=== PATIENT | male | born 1945 | race African-American/Black ===

== ENCOUNTER 2024-06-08 16:20 | Emergency (ER) | payer OTHER, MEDICARE, SELFPAY ==
[2024-06-08 16:30] VITALS: BP 145/79
[2024-06-08 16:33] LABS: Glucose - Point of Care 111 mg/dl (70-99)
[2024-06-08 17:00] VITALS: BP 142/77
[2024-06-08 17:58] LABS: % Basophils 1.5 % (0-2); % Eosinophils 3.9 % (0-6); % Immature Granulocytes 0.1 % (0-0.5); % Lymphocytes 23.8 % (20.5-51.1); % Monocytes 12.9 % (1.7-9.3); % Neutrophils 57.8 % (42.2-75.2); Absolute Basophils 0.1 10^3/uL (0-0.2); Absolute Eosinophils 0.3 10^3/uL (0-0.7); Absolute Lymphocytes 1.6 10^3/uL (1.2-3.4); Absolute Monocytes 0.9 10^3/uL (0.1-0.6); Absolute Neutrophils 3.9 10^3/uL (1.4-6.5); Hematocrit 47.8 % (39.0-52.0); Mean Corp Hgb Conc. 33.5 g/dL (33.0-37.0); Mean Corpuscular Hgb 28.7 pg (27.0-31.0); Mean Corpuscular Volume 85.8 fL (80.0-94.0); Mean Platelet Volume 10.8 fL (7.4-10.4); Nucleated Red Blood Cells % 0 % (-); Platelet Count 310 10^3/uL (130-400); Red Blood Cell Count 5.57 10^6/uL (4.70-6.10); White Blood Cell Count 6.7 10^3/uL (4.8-10.8)
[2024-06-08 19:48] LABS: ALT (SGPT) 17 U/L (0-50); AST (SGOT) 26 U/L (17-59); Albumin 3.9 g/dl (3.5-5.0); Alkaline Phosphatase 76 U/L (38-126); Blood Urea Nitrogen 14 mg/dl (9-20); Calcium 9.6 mg/dl (8.4-10.2); Carbon Dioxide 27 mmol/L (22-30); Chloride 102 mmol/L (98-107); Glucose 117 mg/dl (70-99); Potassium 4.9 mmol/L (3.5-5.1); Sodium 139 mmol/L (135-145); Total Bilirubin 0.4 mg/dl (0.2-1.3); Total Protein 7.4 g/dl (6.3-8.2); eGFR 55.88
[2024-06-08 20:01] LABS: Troponin I 0.022 ng/ml
[2024-06-08 20:18] LABS: Urine Albumin 2+ (Neg - Trace); Urine Bilirubin Negative (Negative); Urine Character Clear (Clear); Urine Color Yellow; Urine Glucose Negative (Negative); Urine Ketone Negative (Negative); Urine Leukocyte Negative (Negative); Urine Nitrite Negative (Negative); Urine Occult Blood 1+ (Negative); Urine Specific Gravity 1.015 (<1.030); Urine Urobilinogen 1+ (Neg - 1+)
[2024-06-08 20:30] LABS: Urine Squamous Cell 0-2 /LPF (Few); Urine White Cell 0-2 /HPF (0-5)
[2024-06-08 20:31] LABS: Urine Bacteria Few (Negative); Urine Hyaline Cast 0-2 /LPF (0-2); Urine Mucus Few
--- NOTE | 2024-06-08 21:21 | ED.CVA ---
History of Present Illness
General
Chief Complaint: CVA/TIA Symptoms
Source: family
Exam Limitations: none
Time Seen by Provider: 06/08/24 17:23
Onset of Stroke Symptoms
Onset of symptoms known: No
Time pt last seen normal is known: No
History of Present Illness
History of Present Illness:
Patient not presenting with strokelike symptoms. He is presenting with apparent pain pointing to his left chest and is seem to have some spasm of his extremities. Son says that this happens at times. They were unsure what to make of this. He now
seems comfortable and at baseline. Symptoms lasted about 10 minutes. No new strokelike symptoms per the family.
Past History
Past History
ED Past Medical History: Cancer, HTN, Hypercholesterolemia and Other (CVA/dementia)
ED Past Surgical History: Other (Hernia repair)
Social History
Tobacco: Non-smoker
Living: with family
Employment: Retired
Review of Systems
Review of Systems
All Other Systems: Not applicable
Phy Exam
Physical Exam
Physical Exam:
GENERAL: Alert. Moderate aphasia. Will follow simple commands
EYE: Orbits normal.
NECK: Supple, no significant adenopathy.
ENT: Pharynx without erythema
CARDIAC: Regular rate and rhythm without any obvious murmurs.
LUNGS: Clear breath sounds,normal
ABDOMEN: Soft, without focal tenderness or distention
NEUROLOGICAL: Alert moderate aphasia. Will follow simple commands. Dense hemiplegia.
SKIN: Warm and dry, no rash or lesion, no discoloration, skin intact.
MUSCULOSKELETAL: Contractures to the right side
PSYCH: Cooperative
Course
Orders/Labs/Results
Orders:
Orders
06/08/24 16:29
EKG [Electrocardiogram (*1)] Urgent
Reason for Study: Fatigue / Weakness
06/08/24 16:30
EKG- Treatment ONCE
06/08/24 17:29
CT Head W/o Iv Contrast Urgent
Comment:
Reason For Exam: History of CVA. Change in mental status
Cardiac Monitoring- Treatment ONCE
IV Insert/Care/Rem.- Treatment PRN
Straight cath- Treatment ONCE
CR Chest - 2 Views Urgent
Comment:
Reason For Exam: cp
Pulse Ox/cont/shift [RESP] Stat
Quantity: 1
06/08/24 17:48
CBC/With Diff [Complete Blood Count/With Diff] Urgent
06/08/24 19:28
Comprehensive Metabolic Panel Urgent
Troponin I Urgent
06/08/24 20:13
Urinalysis Reflex To Culture Urgent
Date Specimen was Collected: 06/08/24
Time Specimen was Collected: 20:11
Urine Microscopic Reflex Cult Urgent
Abnormal Lab Results
06/08/24 06/08/24 06/08/24
16:32 17:48 19:28
MPV 10.8 H fL
(7.4-10.4)
Absolute Monos (auto) 0.9 H 10^3/uL
(0.1-0.6)
Monocytes % 12.9 H %
(1.7-9.3)
Glucose 117 H mg/dl
(70-99)
Ur Occult Blood Reflex
Urine RBC
Urine Bacteria (Reflex)
Urine Albumin (Reflex)
POC Glucose 111 H mg/dl
(70-99)
06/08/24
20:13
MPV
Absolute Monos (auto)
Monocytes %
Glucose
Ur Occult Blood Reflex 1+ A
(Negative)
Urine RBC 3-6 A /HPF
(0-2)
Urine Bacteria (Reflex) Few A
(Negative)
Urine Albumin (Reflex) 2+ A
(Neg - Trace)
POC Glucose
06/08/24 17:48
06/08/24 19:28
Vital Signs
Initial and Last Documented VS:
Initial Vital Signs
Temp Pulse Resp BP
96.6 F L 59 24 145/79
06/08/24 16:30 06/08/24 16:30 06/08/24 16:30 06/08/24 16:30
Last Documented Vital Signs
Temp Pulse Resp BP Pulse Ox
96.6 F L 59 24 145/79 97
06/08/24 16:30 06/08/24 16:30 06/08/24 16:30 06/08/24 16:30 06/08/24 16:40
MDM/Problems Addressed
Differential Diagnosis Includes:
Family is describing more peripheral extremity like spasms and any other symptoms. He has had this occasionally. Not describing acute neurologic symptoms. Difficult to tell with the aphasia but low suspicion for cardiac. He has remained stable
throughout his ER stay. He is asymptomatic and at baseline workup is unremarkable. Patient can be discharged to follow-up
*Radiology
Radiology exam reviewed: preliminary read by ED provider (Negative chest x-ray) and radiology read reviewed (No acute findings on CT)
*Pulse Oximetry
Patient hypoxic: no
*EKG
Interpreted by ED Provider?: Yes
Interpretation: abnormal
Comparison EKG: no comparison EKG present
Heart Rate: 58
Rate: bradycardiac
Rhythm: sinus
[place]: normal axis
Interval: normal interval
QRS Pattern: right bundle branch block
Ischemia: non-specific ST changes
*Critical Care Note
Total Time (30-74mins, 75-104mins- exclusive of procedures): Not Applicable
ED Attending Note
-
Portions of this chart may have been created with voice recognition software.� Occasional wrong word or��sound alike� substitutions may have occurred due to the inherent limitations of voice recognition software.
Discharge Plan
Departure
Patient Disposition: Home (Routine Discharge)
Date of Disposition: 06/08/24
Time of Disposition: 21:25
Patient with high blood pressure during this ER visit?: Yes
Discharge Problem:
Transient nonspecified chest/extremity s, Spasm, History of CVA
Instructions: BLOOD PRESSURE
Referrals:
Emily Pierce DO [Family Provider] - Follow up in 2-3 days
Activity Restrictions/Additional Instructions:
Follow-up closely with his primary physician.
Return sooner with any recurrence of unusual pain mental status changes new neurologic symptoms or any other concerning symptoms
Interventions
Interventions:
*Risk Screen - Suicide Last Done: 06/08/24 16:30
*General Assessment Last Done: 06/08/24 16:30
*Neglect/Abuse Screening Last Done: 06/08/24 16:30
Discharge Date and Time
Print Language: TAIWANESE
== END 2024-06-08 22:04 | disposition home or self-care (01) ==
LOC: EMR 16:20
PROVIDERS: EMERGENCY PHYSICIAN Emergency Medicine; FAMILY PHYSICIAN Family Medicine
DX: R07.89 Other chest pain (principal); I10 Essential (primary) hypertension; E78.00 Pure hypercholesterolemia, unspecified; F03.90 Unspecified dementia, unspecified severity, without behavioral disturbance, psychotic disturbance, mood disturbance, and anxiety; Z86.73 Personal history of transient ischemic attack (TIA), and cerebral infarction without residual deficits
CPT/HCPCS: 99284; 70450; 71046; 80053; 81003; 81015; 82962; 84484; 85025; 93005

== ENCOUNTER 2025-04-29 13:06 | Emergency (ER) | payer MEDICARE, OTHER, SELFPAY ==
[2025-04-29 13:09] VITALS: BP 127/59; BMI 27.7
[2025-04-29 13:11] VITALS: BP 127/59
--- NOTE | 2025-04-29 13:30 | ED.CVA ---
History of Present Illness
General
Chief Complaint: CVA/TIA Symptoms
Source: patient and spouse
Exam Limitations: dementia
Time Seen by Provider: 04/29/25 13:21
Nursing documentation reviewed up to this point in time: agreed with
Onset of Stroke Symptoms
Onset of symptoms known: No
Time pt last seen normal is known: No
History of Present Illness
History of Present Illness:
Note:
CHIEF COMPLAINT(S)
Altered mental status.
HISTORY OF PRESENT ILLNESS
The patient is an 79-year-old male who experienced an episode of altered mental status today. According to his spouse, the patient had breakfast as usual but by approximately 12:00 PM, he was found unresponsive with eyes closed in bed. Family
members attempted to communicate with him, but he did not respond. The patients son called for emergency medical services (EMS) upon finding him unresponsive. Upon EMS arrival, he managed to say something but remained generally non-communicative.
His speech was noted to be unclear and difficult to understand, which, according to the spouse, is typical for him. The patient was able to follow some simple commands like lifting his hand and leg when prompted, although not consistently.
PHYSICAL EXAM
General: Alert, no acute distress noted upon current examination.
Skin: Warm, dry.
Head: Normocephalic, atraumatic.
Neck: Supple, trachea midline.
Eye Ears, nose, mouth and throat: Oral mucosa moist.
Cardiovascular: Normal peripheral perfusion, No edema.
Respiratory: Respirations are non-labored.
Gastrointestinal: Abdomen nondistended
Back: Normal range of motion, Normal alignment.
Musculoskeletal: Normal range of motion, normal strength when prompted though initially inconsistent.
Neurological: Alert but speech unclear. Complies with some commands but delayed responsiveness noted. Chronic right sided paralysis.
Psychiatric: Cooperative, appropriate mood & affect.
PLAN
1. Perform a head CT scan to evaluate for any acute intracranial events.
2. Conduct blood tests to identify any metabolic disturbances.
3. Monitor neurological status frequently.
4. Reassess for potential discharge home if clinical evaluation and testing are normal.
DIFFERENTIAL DIAGNOSIS
The Differential Diagnosis includes, in no particular order and is not limited to:
1. Transient ischemic attack
2. Cerebrovascular accident (stroke)
3. Hypoglycemia
4. Electrolyte imbalance
5. Seizure
6. Delirium
7. Medication effect or toxicity
8. Dehydration
9. Infection (e.g., urinary tract infection, pneumonia)
10. Dementia exacerbation
Disposition:
SUMMARY OF ENCOUNTER
The patient, an 79-year-old male, visited the emergency department due to an episode of altered mental status. He was found unresponsive at home around noon, prompting emergency services to be called. Upon arrival of EMS, the patient showed minimal
responsiveness with unclear speech. In the emergency department, the patient was evaluated, including a head CT scan, to rule out acute intracranial events, and various blood tests were conducted. The head CT scan and lab tests showed no acute
findings. The patient returned to his baseline state with no observed neurological deficits during further evaluations.
DISPOSITION
The patient is deemed stable for discharge and can safely return home with plans for close follow-up with his primary care provider.
ASSESSMENT
The patient�s episode is likely attributed to syncope or a transient ischemic attack (TIA), but with the absence of neurological deficits and acute findings, a cerebrovascular accident (CVA) is less likely.
PLAN
1. Discharge the patient with instructions to follow up with his primary care physician.
2. Ensure the patient�s is comfortable with his care at home and understand when to seek further medical attention if symptoms recur.
INDEPENDENT REVIEW OF LABS AND INTERPRETATION OF TESTS
My independent CT head interpretation reveals no acute intracranial events. My independent review of lab tests indicates no acute metabolic disturbances or electrolyte imbalances.
PATIENT EDUCATION AND COUNSELING
The patients was informed regarding the potential causes of his current episode, advised on possible warning signs to watch for, and when to return for medical evaluation.
FOLLOW-UP INSTRUCTIONS
The patient should follow up with his primary care physician soon for further evaluation and management of any underlying conditions that might have contributed to his current episode.
MEDICAL DECISION MAKING
-Complexity of Data Reviewed: Chronic conditions affecting care include consideration of transient ischemic attack, cerebrovascular accident (stroke), hypoglycemia, electrolyte imbalance, seizure, and delirium as possible diagnoses.
-Data:
Category 1
The patient�s outpatient records were reviewed, and a head CT was ordered and evaluated to rule out acute intracranial events.
Category 2
Clinical information gathered from an independent historian � the patients provided context and medical history details.
-Risk:
Consideration of Admission/Observation: While there was consideration of further observation due to the complexity of the patients presentation, ultimately, the work-up was reassuring, and the patient was stable for discharge with reliable follow-up
plans.
DIAGNOSIS
1. Transient Ischemic Attack (G45.9)
2. Syncope and Collapse (R55)
Past History
Past History
ED Past Medical History: Cancer, HTN, Hypercholesterolemia and Other (CVA/dementia)
ED Past Surgical History: Other (Hernia repair)
Social History
Tobacco: Non-smoker
Living: with family
Employment: Retired
Phy Exam
Physical Exam
Physical Exam:
.
Course
Orders/Labs/Results
Orders:
Orders
04/29/25 13:13
EKG [Electrocardiogram (*1)] Urgent
Reason for Study: Tachycardia
EKG- Treatment ONCE
04/29/25 13:30
CT Head W/o Iv Contrast Urgent
Comment:
Reason For Exam: altered mental status
04/29/25 13:58
Basic Metabolic Panel Urgent
Complete Blood Count/With Diff Urgent
04/29/25 14:28
Urinalysis Reflex To Culture Urgent
Date Specimen was Collected: 04/29/25
Time Specimen was Collected: 13:32
Urine Microscopic Reflex Cult Urgent
Urine Culture Urgent
AMANDA Source: U
Specimen Description:
Date Specimen was Collected: 04/29/25
Time Specimen was Collected: 13:32
Abnormal Lab Results
04/29/25 04/29/25
13:58 14:28
MCHC 32.5 L g/dL
(33.0-37.0)
MPV 10.7 H fL
(7.4-10.4)
Absolute Monos (auto) 0.9 H 10^3/uL
(0.1-0.6)
Monocytes % 10.8 H %
(1.7-9.3)
Sodium 132 L mmol/L
(135-145)
Creatinine 1.4 H mg/dL
(0.7-1.3)
Glucose 118 H mg/dl
(70-99)
Ur Occult Blood Reflex 3+ A
(Negative)
Leukocyte Esterase Rfl 1+ A
(Negative)
Urine RBC 11-15 A /HPF
(0-2)
Urine Bacteria (Reflex) Many A
(Negative)
Urine Albumin (Reflex) 3+ A
(Neg - Trace)
04/29/25 13:58
04/29/25 13:58
Vital Signs
Initial and Last Documented VS:
Initial Vital Signs
Temp Pulse Resp BP Pulse Ox
97.4 F 57 17 127/59 92
04/29/25 13:09 04/29/25 13:09 04/29/25 13:09 04/29/25 13:09 04/29/25 13:09
Last Documented Vital Signs
Temp Pulse Resp BP Pulse Ox
97.4 F 63 21 127/59 98
04/29/25 13:09 04/29/25 15:30 04/29/25 15:30 04/29/25 13:11 04/29/25 15:30
*Pulse Oximetry
SaO2: 92
Oxygen Mode of Delivery: Room air
Patient hypoxic: no
*Critical Care Note
Total Time (30-74mins, 75-104mins- exclusive of procedures): Not Applicable
ED Attending Note
-
Portions of this chart may have been created with voice recognition software.� Occasional wrong word or��sound alike� substitutions may have occurred due to the inherent limitations of voice recognition software.
Discharge Plan
Departure
Patient Disposition: Home (Routine Discharge)
Date of Disposition: 04/29/25
Time of Disposition: 15:28
Patient with high blood pressure during this ER visit?: Yes
Condition: Good
Discharge Problem:
Syncope
Instructions: Syncope (fainting), Transient Ischemic Attack (DC), BLOOD PRESSURE
Referrals:
Emily Pierce DO [Family Provider, Family Practice]
Interventions
Interventions:
*Risk Screen - Suicide Last Done: 04/29/25 13:09
*General Assessment Last Done: 04/29/25 13:09
*Neglect/Abuse Screening Last Done: 04/29/25 13:09
*ED- Fall Risk Assessment Last Done: 04/29/25 13:09
*ED COVID-19 Vaccine History Last Done: 04/29/25 13:09
*ED Influenza Vaccine History Last Done: 04/29/25 13:09
ED- Pulmonary Assessment Last Done: 04/29/25 14:57
ED- Neurological Assessment Last Done: 04/29/25 14:57
ED- Cardiac Assessment Last Done: 04/29/25 14:57
Discharge Date and Time
Print Language: [id number]
[2025-04-29 14:14] LABS: Hematocrit 45.8 % (39.0-52.0); Hemoglobin 14.9 g/dL (13.0-18.0); Mean Corp Hgb Conc. 32.5 g/dL (33.0-37.0); Mean Corpuscular Volume 90.0 fL (80.0-94.0); Nucleated Red Blood Cells % 0 % (-); Platelet Count 315 10^3/uL (130-400); Red Cell Dist. Width 13.5 % (11.5-14.5)
[2025-04-29 14:44] LABS: Blood Urea Nitrogen 14 mg/dl (9-20); Calcium 9.7 mg/dl (8.4-10.2); Carbon Dioxide 29 mmol/L (22-30); Chloride 103 mmol/L (98-107); Estimated Creatinine Clearance 34 ml/min; Glucose 118 mg/dl (70-99); Sodium 132 mmol/L (135-145); eGFR 50.81
[2025-04-29 14:51] LABS: Urine Character Slightly Cloudy (Clear)
[2025-04-29 15:11] LABS: Urine Squamous Cell >30 /LPF (Few)
[2025-04-29 17:58] VITALS: BP 198/95
== END 2025-04-29 18:20 | disposition home or self-care (01) ==
LOC: EMR 13:06
PROVIDERS: EMERGENCY PHYSICIAN Emergency Medicine; FAMILY PHYSICIAN Family Medicine
DX: R55 Syncope and collapse (principal); E78.00 Pure hypercholesterolemia, unspecified; I10 Essential (primary) hypertension; F03.90 Unspecified dementia, unspecified severity, without behavioral disturbance, psychotic disturbance, mood disturbance, and anxiety; Z86.73 Personal history of transient ischemic attack (TIA), and cerebral infarction without residual deficits
CPT/HCPCS: 99284; 70450; 80048; 81003; 81015; 85025; 87077; 87086; 87186; 93005